=== PATIENT | male | born 1990 | race Caucasian/White ===

== ENCOUNTER 2020-03-05 12:06 | Emergency (ER) | payer MEDICAID ==
[~2020-03-05] VITALS: Ht 175.3 cm; Wt 77.0 kg
[2020-03-05 13:09] VITALS: BP 125/85
--- NOTE | 2020-03-05 13:11 | PHYS DOC ---
General Adult EDM: Chief Complaint: EYE PROBLEMS HPI: HPI: Patient is a 29 year old male who presents with was using a screw gun today and some metal pieces flew up into his face. He states he got a couple of small metal shards out of his right eye but he still feels like there is something in his eye scratching. He states that he can see out of the eye just fine and has no vision loss. He states it does not hurt when he looks around and moves his eye. Patient states his last tetanus shot was 3 to 4 months ago. Patient denies headache, pain with movement of the eye, vision loss, dizziness, floaters, itching of the eye, eye discharge. Patient rates his discomfort a 7 out of 10. (YASMANI LEBRON APRN) Review of Systems: Review of Systems: Constitutional: Denies fever or chills. [] Eyes: Denies change in visual acuity. Eye irritation and possible foreign body.[] HENT: Denies nasal congestion or sore throat. [] Respiratory: Denies cough or shortness of breath. [] Cardiovascular: Denies chest pain or edema. [] GI: Denies abdominal pain, nausea, vomiting, bloody stools or diarrhea. [] : Denies dysuria. [] Musculoskeletal: Denies back pain or joint pain. [] Integument: Denies rash. [] Neurologic: Denies headache, focal weakness or sensory changes. [] Endocrine: Denies polyuria or polydipsia. [] Lymphatic: Denies swollen glands. [] Psychiatric: Denies depression or anxiety. [] (YASMANI LEBRON APRN) Heart Score: Risk Factors: Risk Factors: DM, Current or recent (<one month) smoker, HTN, HLP, family history of CAD, obesity. Risk Scores: Score 0 - 3: 2.5% MACE over next 6 weeks - Discharge Home Score 4 - 6: 20.3% MACE over next 6 weeks - Admit for Clinical Observation Score 7 - 10: 72.7% MACE over next 6 weeks - Early Invasive Strategies (YASMANI LEBRON APRN) Current Medications: Current Medications Medications (Trade) Dose Ordered Sig/Margy Start Time Stop Time Status Last Admin Dose Admin Fluorescein Sodium (Ful-Annel) 1 strip 1X ONCE 03/05/20 13:15 03/05/20 13:16 UNV Tetracaine HCl (Tetracaine) 1 drop 1X ONCE 03/05/20 13:15 03/05/20 13:16 UNV (YASMANI LEBRON APRN) Physical Exam: PE: Constitutional: Well developed, well nourished, no acute distress, non-toxic appearance. [] HENT: Normocephalic, atraumatic, bilateral external ears normal, oropharynx moist, no oral exudates, nose normal. [] Eyes: PERRLA, EOMI, conjunctiva normal, no discharge. [] Neck: Normal range of motion, no tenderness, supple, no stridor. [] Cardiovascular:Heart rate regular rhythm, no murmur [] Lungs & Thorax: Bilateral breath sounds clear to auscultation [] Abdomen: Bowel sounds normal, soft, no tenderness, no masses, no pulsatile masses. [] Skin: Warm, dry, no erythema, no rash. [] Back: No tenderness, no CVA tenderness. [] Extremities: No tenderness, no cyanosis, no clubbing, ROM intact, no edema. [] Neurologic: Alert and oriented X 3, normal motor function, normal sensory function, no focal deficits noted. [] Psychologic: Affect normal, judgement normal, mood normal. Normal physical exam [] (YASMANI LEBRON APRN) EKG: EKG: [] (YASMANI LEBRON APRN) Radiology/Procedures: Radiology/Procedures: [] (YASMANI LEBRON APRN) Course & Med Decision Making: Course & Med Decision Making Pertinent Labs and Imaging studies reviewed. (See chart for details) Alert and oriented x4. PERRLA. Full eye movements and no visual loss. No pain with eye movements. No swelling or redness of the eye. Speaks in full clear sentences. Skin pink warm and dry. Eye Exam Visual accuity: Eye exam: PERRL, Extraocular muscles intact. No signs of ruptured globe. Sclera clear. Red reflex present. Foreign body: No foreign bodies seen with examination or with lid flip exam. Rakesh-pen: N/A Fluorescein test: Right eye corneal abrasion at 7-8 o'clock. Anesthetic: Tetracaine Patient is given a erythromycin ointment you have been prescribed an antibiotic today to help fight your infection. Please take all of the antibiotic as directed. If after 48 hours the infection is not improving, please return for more care. If the infection worsens, return to ER for additional care. Keep an eye. Patient will be referred to a eye doctor. [] (YASMANI LEBRON APRN) Dragon Disclaimer: Dragon Disclaimer: This electronic medical record was generated, in whole or in part, using a voice recognition dictation system. (YASMANI LEBRON APRN) Dragon Disclaimer: I have reviewed the PA/WELLNESS CONSULTANT's note and Plan of Care. I was available for consultation as needed during the patient's visit in the emergency department. I agree with the clinical impression, plans and disposition. (EDITH OCAMPO DO) Departure Departure Impression: Primary Impression: Corneal abrasion Qualified Codes: S05.01XA - Injury of conjunctiva and corneal abrasion without foreign body, right eye, initial encounter Disposition: HOME, SELF-CARE Condition: STABLE Referrals: NO PCP (PCP) Andriy CHRISTIANSON MD Patient Instructions: Eye - Corneal Abrasion Additional Instructions: Use antibiotic as prescribed and as I had educated you in the room. I have referred you to a eye doctor or you can follow-up with your own eye doctor. Scripts Erythromycin Base (Erythromycin) 1 Gm Oint...g. 1 GM OP QIDACHS for 10 Days, #1 MISC APPLY 1/4 INCH OF OINTMENT TO LOWER INNER EYE LID FOUR TIMES A DAY FOR 10 DAYS. Prov: YASMANI LEBRON APRN 03/05/20 Justicifation of Admission Dx: Justifications for Admission: Justification of Admission Dx: N/A (YASMANI LEBRON APRN) YASMANI LEBRON APRN Mar 05, 2020 13:11 EDITH OCAMPO DO Mar 05, 2020 18:17
[2020-03-05] MEDS ORDERED: FLUORESCEIN OPHTH TEST STRIP. OD ONE (13:15)
[2020-03-05] MEDS ORDERED: TETRACAINE 0.5% OPHTH SOLUTION 4ML BOTTLE. OD ONE (13:15)
[2020-03-05] MEDS ORDERED: ERYT1OIN6 OP (13:27)
== END 2020-03-05 14:16 | disposition home or self-care (01) ==
LOC: ER 12:06
DX: S05.01XA Injury of conjunctiva and corneal abrasion without foreign body, right eye, initial encounter (principal); X58.XXXA Exposure to other specified factors, initial encounter; Y93.89 Activity, other specified; Y92.89 Other specified places as the place of occurrence of the external cause; Y99.8 Other external cause status
CPT/HCPCS: 99283